=== PATIENT | female | born 1970 | race Two or more races ===

== ENCOUNTER 2020-05-13 00:50 | Emergency (ER) | payer MEDICAID ==
[~2020-05-13] VITALS: Ht 170.2 cm; Wt 99.8 kg
[2020-05-13 03:01] VITALS: BP 115/76
[2020-05-13] MEDS ORDERED: KETOROLAC TROMETH 60MG/2ML VIAL IM ONE (03:15)
== END 2020-05-13 05:50 | disposition home or self-care (01) ==
LOC: EDBD 00:50 → ER 01:00
DX: S52.502A Unspecified fracture of the lower end of left radius, initial encounter for closed fracture (principal); S39.92XA Unspecified injury of lower back, initial encounter; M54.5 Low back pain; R51 Headache; M54.2 Cervicalgia; M27.40 Unspecified cyst of jaw; M53.3 Sacrococcygeal disorders, not elsewhere classified; Y04.2XXA Assault by strike against or bumped into by another person, initial encounter; Y93.89 Activity, other specified; Y92.89 Other specified places as the place of occurrence of the external cause; Y99.8 Other external cause status
CPT/HCPCS: 29125; 70450; 70486; 71250; 72125; 73110; 73130; 74176; 82962; 96372; 99285; J1885